=== PATIENT | female | born 1955 | race Caucasian/White ===

== ENCOUNTER → 2017-02-23 | Outpatient (CLI) | payer BC ==
[2014-11-22 15:11] VITALS: BP 113/74
[~2017-02-23] MED LIST: AMOX1TAB61 PO; CALC-507 PO; CHOL100013 PO; CHOL5000 PO; CRAN400C PO; CYAN1TAB28 PO; FOLI1TAB16 PO; METO-239 PO; MILK200C2 PO; MULT-18 PO; OMEG1CAP6 PO; PSYL1PAC7 PO; PYRI25TA2 PO; SELE100T PO; TURM1POW2 MC; VITA100T5 PO
[2017-02-23 12:07] LABS: ALBUMIN 3.5 g/dL (3.4-5.0); ALBUMIN/GLOBULIN RATIO 0.9 (1.0-1.7); CALCIUM 8.5 mg/dL (8.5-10.1); CREATININE 0.8 mg/dL (0.6-1.0); GFR 72.4; TOTAL BILIRUBIN 0.5 mg/dL (0.2-1.0); TOTAL PROTEIN 7.2 g/dL (6.4-8.2)
[2017-02-25 16:11] LABS: HCV ULTRA QUANT PCR HCV Not Detected IU/mL (.)
== END | disposition home or self-care (01) ==
LOC: LAB 09:52
PROVIDERS: ATTEND Internal Medicine Gastroenterology
DX: B19.20 Unspecified viral hepatitis C without hepatic coma (principal)
CPT/HCPCS: 36415; 80053; 87521

== ENCOUNTER → 2017-02-26 | Outpatient (CLI) | payer BC ==
[2014-11-22 15:11] VITALS: BP 113/74
--- NOTE | 2017-02-26 16:51 | RAD ---
CERVICAL SPINE 2-3V (AP, lateral, open-mouth odontoid) Clinical Indication: Neck Pain for 2 to 3 months Comparison: None. Findings: The cervical spine is visualized to level of C7. Straightening of the normal cervical lordosis. Trace retrolisthesis of C5 on C6. Focally advanced C5-C6 degenerative changes with disc height loss and osteophyte formation. Vertebral body heights are maintained. No evidence of acute fracture. No significant soft tissue abnormality. Incompletely visualized pacemaker. IMPRESSION: 1. No acute fracture. 2. Focally advanced C5-C6 degenerative changes. 3. Trace retrolisthesis of C5 on C6.
== END | disposition home or self-care (01) ==
LOC: DXRAD 10:39
PROVIDERS: ATTEND Family Medicine
DX: M47.892 Other spondylosis, cervical region (principal); M81.0 Age-related osteoporosis without current pathological fracture; M40.40 Postural lordosis, site unspecified; M25.78 Osteophyte, vertebrae
CPT/HCPCS: 72040

== ENCOUNTER → 2017-03-18 | Outpatient (CLI) | payer BC ==
[2014-11-22 15:11] VITALS: BP 113/74
--- NOTE | 2017-03-18 14:02 | RAD ---
DEXA scan 03/18/2017 Clinical history: Risk factors for osteoporosis. History of fracture. Height loss. Steroid use. Postmenopausal female. Technique: DEXA of the lumbar spine and right hip was performed. FINDINGS: The mean bone mineral density of the lumbar spine is 0.970 g/sq cm. This corresponds to a T score of -1.8. This is consistent with moderate osteopenia.. The mean bone mineral density of right hip is -0.723 g/sq cm. This corresponds to a T score of -2.3. This is severe osteopenia. IMPRESSION: 1. Moderate osteopenia of the lumbar spine. 2. Severe osteopenia of the right hip. According to [employer] Organization, the definition of osteoporosis and osteopenia for women is as follows: Normal = T score at or above -1.0 SD. Osteopenia = T score between -1.0 and -2.5 SD. Osteoporosis = T score at or below -2.5 SD.
== END | disposition home or self-care (01) ==
LOC: DXRAD 13:21
PROVIDERS: ATTEND Family Medicine
DX: M81.0 Age-related osteoporosis without current pathological fracture (principal); Z78.0 Asymptomatic menopausal state
CPT/HCPCS: 77080

== ENCOUNTER → 2017-09-30 | Outpatient (CLI) | payer BC ==
[2014-11-22 15:11] VITALS: BP 113/74
[2017-09-30 08:33] LABS: ALBUMIN 3.4 g/dL (3.4-5.0); DIRECT BILIRUBIN 0.1 mg/dL (0.0-0.2); TOTAL BILIRUBIN 0.6 mg/dL (0.2-1.0); TOTAL PROTEIN 7.1 g/dL (6.4-8.2)
[2017-10-02 11:09] LABS: HCV ULTRA QUANT PCR HCV Not Detected IU/mL (.)
== END | disposition home or self-care (01) ==
LOC: LAB 07:35
PROVIDERS: ATTEND Internal Medicine
DX: B19.20 Unspecified viral hepatitis C without hepatic coma (principal)
CPT/HCPCS: 36415; 80076; 87521